=== PATIENT | female | born 1960 | race African-American/Black ===

== ENCOUNTER 2021-10-19 08:34 | Emergency (ER) | payer MEDICARE, OTHER ==
[~2021-10-19] VITALS: Ht 162.6 cm; Wt 95.3 kg
[2021-10-19] MEDS ORDERED: IBUPROFEN 400 MG TAB PO ONE (08:45)
[2021-10-19] MEDS ORDERED: HYDROCODONE/APAP 5MG-325MG TAB PO ONE (08:45)
[2021-10-19] MEDS ORDERED: OXYCODONE-ACET1 EAC6 PEG (11:54)
[2021-10-19 13:19] VITALS: BP 117/54
[2021-10-19] MEDS ORDERED: HYDROCODON-ACE1 EA11 PO (15:19)
== END 2021-10-19 12:05 | disposition home or self-care (01) ==
LOC: ER 08:37
DX: S62.101A Fracture of unspecified carpal bone, right wrist, initial encounter for closed fracture (principal); W01.0XXA Fall on same level from slipping, tripping and stumbling without subsequent striking against object, initial encounter; Y93.01 Activity, walking, marching and hiking; Y92.89 Other specified places as the place of occurrence of the external cause; I10 Essential (primary) hypertension; E11.9 Type 2 diabetes mellitus without complications; I50.9 Heart failure, unspecified; Z95.810 Presence of automatic (implantable) cardiac defibrillator
CPT/HCPCS: 99283